=== PATIENT | male | born 1995 | race Caucasian/White ===

== ENCOUNTER → 2019-06-24 14:13 | Outpatient (CLI) | payer BC, SELFPAY ==
[2019-06-24 15:24] LABS: BUN Creatinine Ratio 18.2 (6-22); Blood Urea Nitrogen 20 mg/dL (9-20); Calcium 9.8 mg/dL (8.4-10.2); Carbon Dioxide 33 mmol/L (22-32); Chloride 101 mmol/L (98-107); Cholesterol 159 mg/dL (140-199); Estimated Glomerular Filt Rate > 60.0 mL/min (>60); Glucose 92 mg/dL (70-100); HDL Cholesterol 47 mg/dL (40-60); HEMOLYSIS < 15 (0-50); LDL Cholesterol Calculated 86 mg/dL (<100); Potassium 4.2 mmol/L (3.4-5.1); Sodium 141 mmol/L (137-145); Triglycerides 128 mg/dL (35-150)
[2019-06-24 15:39] LABS: Vitamin D 25 Hydroxy (D3) 35.3 ng/mL (30.0-100.0)
== END ==
PROVIDERS: PCP Student in an Organized Health Care Education/Training Program; Visit Provider Student in an Organized Health Care Education/Training Program
DX: Z13.220 Encounter for screening for lipoid disorders (principal); E63.1 Imbalance of constituents of food intake; Z71.3 Dietary counseling and surveillance; E55.9 Vitamin D deficiency, unspecified
CPT/HCPCS: 36415; 80048; 80061; 82306

== ENCOUNTER 2021-01-16 09:00 | Emergency (ER) | payer BC, SELFPAY ==
[2021-01-16 09:10] VITALS: BP 152/69; PULSE 89; RESP 16; TEMP 36.2; O2SAT 98; BMI 25.8
--- NOTE | 2021-01-16 09:13 | ED.LOWEXIN ---
HPI - Extremity Injury (Lower) General Chief Complaint: Extremity Injury, Lower Stated Complaint: hurt left foot Time Seen by Provider: 01/16/21 09:05 Source: patient Mode of arrival: Ambulatory Limitations: no limitations History of Present Illness HPI Narrative: 25-year-old male nonsmoker with history of ADHD presents with a chief complaint of left lateral foot pain. Last night he was walking and stumbled, his foot bent backwards and caused him a bit of pain. He denies any ankle, knee or calf discomfort. He was relatively okay for the course of the night but over this morning he is having pain with ambulation. He developed some bruising over his lateral foot and though he does not have any pain when not weight-bearing can have full painless range of motion when he stands he has significant pain. He denies any numbness, tingling or weakness. He denies any history of the same. MD complaint: foot injury Onset (ago): hour(s) Type of Injury: hyperextension Place: home Severity: mild Relieving factors: rest Exacerbating factors: weight bearing Context: walking Associated symptoms: able to partially bear weight Other symptoms: none Related Data Home Medications Medication Instructions Recorded Confirmed No Known Home Medications 06/24/19 06/24/19 Allergies Allergy/AdvReac Type Severity Reaction Status Date / Time No Known Drug Allergies Allergy Verified 01/16/21 09:47 Review of Systems Constitutional Constitutional: Denies frequent falls and Denies weakness Eyes Eyes: Denies change in vision ENT Ears, Nose, Mouth, and Throat: Denies dizziness Cardiovascular Cardiovascular: Denies chest pain and Denies lightheadedness Respiratory Respiratory: Denies cough and Denies wheezing Gastrointestinal Gastrointestinal: Denies abdominal pain, Denies change in bowel habits, Denies diarrhea, Denies nausea and Denies vomiting Musculoskeletal Musculoskeletal: Reports abnormal gait and Denies numbness Integumentary/Breasts Skin/Breast: Denies pruritus, Denies erythema, Denies rash and Denies wounds Neurologic Neurologic: Reports abnormal gait, Denies behavioral changes, Denies confusion, Denies dizziness, Denies frequent falls, Denies numbness and Denies weakness Psychiatric Psychiatric: Denies anxiety, Denies behavioral changes, Denies confusion, Denies depression, Denies homicidal ideation and Denies suicidal ideation Endocrine Endocrine: Denies flushing Hematologic/Lymphatic Hematologic/Lymphatic: Denies easy bruising Allergic/Immunologic Allergic/Immunologic: Denies urticaria and Denies wheezing Patient History Medical History Abdominal muscle strain ADHD (~2002) Broken arm (2013) Chicken pox (~1998) Shoulder pain Toe fracture, left Social History Smoking Status: Former smoker Smoking Status: Former smoker Exam Narrative Exam Narrative: GEN: AOx3 and in mild distress EYES: Pupils are equal, round, and reactive to light and accommodation. Extraoccular muscles are intact bilaterally. There is no subconjunctival hemorrhage or exudate. CHEST: Lungs are clear to auscultation bilaterally and free of wheezes, rales, or rhonchi. Heart rate is regular rhythm, there are no murmurs, clicks, rubs, or gallops. There is no chest wall tenderness. ABD: Abdomen is soft and nontender. There is no guarding or rebound. Bowel sounds are normal in all 4 quadrants. There is no mass or organomegaly. EXT: Full painless range of motion of left foot and ankle. Bruising and tenderness noted over lateral foot. No significant swelling or gross deformity. No pain over talus. No pain or depression over Achilles. SKIN: Warm, pink, and dry. No erythema or rash Initial Vital Signs Initial Vital Signs: Vital Signs Temperature 97.1 F L 01/16/21 09:10 Pulse Rate 89 01/16/21 09:10 Respiratory Rate 16 01/16/21 09:10 Blood Pressure 152/69 H 01/16/21 09:10 Pulse Oximetry 98 01/16/21 09:10 Procedures Orthopedic Splinting/Casting Injury #1: Side: right Lower Extremity Injury Location: foot Lower Extremity Immobilizer: post-op shoe Post splinting neuro exam: intact Post splinting vascular exam: intact Placed by: Nursing Course Orders Ordered: ED Orders 01/16/21 09:17 XR foot LT min 3V Stat Discontinued Medications Acetaminophen (Acetaminophen 325 Mg Tablet) 975 mg PO NOW ONE Stop: 01/16/21 09:18 Last Admin: 01/16/21 09:27 Dose: 975 mg Documented by: JASIEL Ibuprofen (Ibuprofen 400 Mg Tablet) 800 mg PO NOW ONE Stop: 01/16/21 09:18 Last Admin: 01/16/21 09:27 Dose: 800 mg Documented by: JASIEL Vital Signs Vital signs: Vital Signs - 8 hr 01/16/21 09:10 01/16/21 10:40 Temperature 97.1 F L Pulse Rate 89 55 L Respiratory Rate 16 14 Blood Pressure 152/69 H Pulse Oximetry 98 100 MDM - Extremity Injury (Lower) Imaging Data Extremity x-ray #1: Radiologist's Impression: [address] [id number] ReportSigned Patient: Tae Brock MMR#: [id number]: [id number]:[id number]/Sex: 25 / MDate of Service: 01/16/21Loc: EDAccession Number: [id number] Procedure: XR foot LT min 3V Ordering Provider: Carlo Glez D.O. PROCEDURE: XR FOOT LT MIN 3V INDICATIONS: pain and swelling over lateral foot after injury, 5th MT TECHNIQUE: 3 views of the foot were acquired. COMPARISON: [facility], , TOE MINIMUM 2 VIEWS LEFT, 01/17/2017, 10:49. FINDINGS: Bones: No fractures or dislocations. No suspicious bony lesions. Soft tissues: No tibiotalar joint effusion. Achilles tendon appears normal. IMPRESSION: Negative for acute fracture. Dictated by: Sunny Christopher M.D. on 01/16/2021 at 9:26 Approved by: Sunny Christopher M.D. on 01/16/2021 at 9:27 Discharge Plan Departure Patient Disposition: Home Clinical Impression: Foot sprain Qualifiers: Encounter type: initial encounter Laterality: left Qualified Code(s): S93.602A - Unspecified sprain of left foot, initial encounter Instructions: DI for Foot Sprain Activity Restrictions/Additional Instructions: *You have been diagnosed with [left foot sprain, x-ray does not show evidence of fracture.] *What to do: *Please continue to take your regular medications as directed. [ ] New medication prescriptions sent to your pharmacy: [ ] [ ] New medication written as a paper prescription [x ] No new medications given * the nature of your injury and negative x-ray would suggest this is a soft tissue injury such as ligament or tendon. Given the amount of pain you have with weight-bearing ongoing use of crutches is recommended until pain improves. For routine ligamentous and other soft tissue injuries we would expect improvement over the next 5-7 days. If you have ongoing discomfort at that point in time a repeat x-ray be a reasonable next step.. *Please follow up with your primary care provider in 2-3 days, call for an appointment. Let them know you were seen in the Emergency Department and that we ask that you be seen in follow up. We will electronically transmit a record of today's note if your PCP is in our system *If you do not have a primary care provider please contact the [facility] Resource line at [phone]. They will ask some questions about your medical history and help get you set up with a doctor in the community. *Return to Emergency Department if you should have any new, worsening or concerning symptoms, such as [fever greater than 101 F, shaking chills, worsening pain, persistent vomiting or other bothersome symptoms] Prescriptions: No Action No Known Home Medications RF: 0 Referrals: Simba Salgado MD [Primary Care Provider] - Stand Alone Forms: Work Release Note
--- NOTE | 2021-01-16 09:17 | DI.RAD.S_ITS ---
PROCEDURE: XR FOOT LT MIN 3V INDICATIONS: pain and swelling over lateral foot after injury, 5th MT TECHNIQUE: 3 views of the foot were acquired. COMPARISON: [facility], CR, TOE MINIMUM 2 VIEWS LEFT, 01/17/2017, 10:49. FINDINGS: Bones: No fractures or dislocations. No suspicious bony lesions. Soft tissues: No tibiotalar joint effusion. Achilles tendon appears normal. IMPRESSION: Negative for acute fracture. Dictated by: Sunny Christopher M.D. on 01/16/2021 at 9:26 Approved by: Sunny Christopher M.D. on 01/16/2021 at 9:27
[2021-01-16] MEDS: ACETAMINOPHEN 325 MG TABLET 975 MG PO (09:27)
[2021-01-16] MEDS: IBUPROFEN 400 MG TABLET 800 MG PO (09:27)
[2021-01-16 10:40] VITALS: PULSE 55; RESP 14; O2SAT 100
== END 2021-01-16 10:41 | disposition home or self-care (01) ==
PROVIDERS: Emergency Provider Emergency Medicine; PCP Student in an Organized Health Care Education/Training Program
DX: S93.602A Unspecified sprain of left foot, initial encounter (principal); W19.XXXA Unspecified fall, initial encounter
CPT/HCPCS: 73630; 99283